=== PATIENT | male | born 1985 | race Caucasian/White ===

== ENCOUNTER 2018-07-30 16:41 | Emergency (ER) | payer SELFPAY ==
[2018-07-30 17:09] VITALS: BP 116/74; PULSE 102; RESP 16; TEMP 36.6; O2SAT 100
--- NOTE | 2018-07-30 17:37 | DI.CT_ITS ---
SYMPTOM/DIAGNOSIS: SYNCOPE, FELL NONCONTRAST HEAD CT: No priors. There is normal nayak white matter differentiation. No intracranial hemorrhage, infarct, midline shift or mass effect is identified. The ventricles are intact. The basilar cisterns are patent. There are fluid levels seen in the maxillary sinuses bilaterally. There is opacification of several ethmoid air cells bilaterally. There is mild mucosal thickening in the sphenoid sinuses and the frontal sinuses are clear. The mastoid air cells are well pneumatized. The calvarium is intact. IMPRESSION: 1. No acute intracranial process. 2. Fluid levels seen in the maxillary sinuses bilaterally. This can be seen with acute sinusitis as well as secondary to trauma. Follow up as clinically appropriate.
--- NOTE | 2018-07-30 17:39 | W.ED.GENAD ---
Discharge Plan Disposition Patient Disposition: HOME Condition: Fair Discharge Details Chief Complaint: Dizzy/Sync Clinical Impression: Syncope Primary Care Provider: None,None ED Provider: Shakira Traore Home Meds and New Rx's Prescriptions: No Action No Known Home Meds RF: 0 Discharge Instructions Instructions: Syncope (ED) Additional Instructions: Encourage hydration. You will need follow-up with primary care, I have asked her rn palliative care to help facilitate follow-up appointment. If you develop chest pain, shortness of breath, have recurrent syncopal episode or other new/worsening symptoms please seek care urgently once again Medical Decision Making <ZAHRA Horn - Last Filed: 07/31/18 00:39> Patient is a 33 year old male presenting today with c/c of syncope. 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 Reports that he awoke immediately. There is some mild discomfort in the posterior aspect of his head but no nausea or vomiting. No recent illness. Denies fevers or chills. No familial history of sudden cardiac . Denies any chest pain or shortness of breath. No recent travel. 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 Feels that his side effects associated with withdrawal are improving. Reports that now he is asleep is returning more to baseline but he does continue to have chills intermittently. On exam, patient is resting comfortably. No evidence of head trauma. Neuro exam is intact. Patient found to be in normal sinus rhythm. Will obtain EKG, baseline labs and head CT. Discussed plan with the patient is in agreement FINDINGS: Brain: Unremarkable. No hemorrhage. No significant white matter disease. No edema. No mass effect. Ventricles: Unremarkable. No ventriculomegaly. Bones/joints: Unremarkable. No acute fracture. Sinuses: Nonspecific fluid levels within the maxillary sinuses. These changes may be seen with acute sinusitis as well as trauma. Partial opacification of multiple ethmoid sinuses. Clear sphenoid and frontal sinuses. Mastoid air cells: Normal as visualized. No mastoid effusion. Soft tissues: Unremarkable. IMPRESSION: 1. No acute intracranial abnormality. 2. Fluid levels within the maxillary sinuses. These changes may be seen with acute sinusitis as well as secondary to trauma. EKG reviewed by Dr. Marroquin no acute abnormalities noted, please see his note Labs reviewed without any acute pathology noted. Spoke with the patient and his mother again, reviewed the CT findings, labs and EKG. Advised that his history is most consistent with a syncopal episode. Encouraged hydration, he received 1L fluids while here. Patient does not have primary care, I have asked her rn palliative care to help facilitate this. Patient was given strict return precautions. He lives locally with significant other and is able to return with new/worsening symptoms. All of his quesitons and concerns were addressed, he isin agreement with this plan. <Enrike Marroquin DO - Last Filed: 07/30/18 19:44> EKG 19: 37 Rate 93, intervals normal, sinus rhythm, no ST elevations or depressions, no T wave inversions, no epsilon wave, no delta wave, No significant abnormalities HPI <ZAHRA Horn - Last Filed: 07/31/18 00:39> General Mode of arrival: ambulatory. Date/Time Provider Initiated Documentation: 07/30/18 17:37. Limitations to Documentation: no limitations. Information obtained by: patient. History of Present Illness 33 year old M presents to the emergency department with the chief complaint of syncopal episode, Patient started experiencing this hour(s) and it has been now resolved. Patient notes syncope; denies chest pain, cough, diaphoresis, fever/chills, headaches, loss of appetite, nausea/vomiting, rash, seizure, shortness of breath and weakness. Patient did receive the following treatments prior to arrival, none Related Data Home Medications Medication Instructions Recorded Confirmed Unknown [No Known Home Meds] 07/30/18 07/30/18 Allergies Allergy/AdvReac Type Severity Reaction Status Date / Time No Known Allergies Allergy Unverified 07/30/18 17:14 General Stated Complaint: Dizzy/Sync IGGY: 3 Review of Systems <ZAHRA Horn Last Filed: 07/31/18 00:39> Constitutional Reports as per HPI, Denies chills, Denies fatigue, Denies fever(s), Denies frequent falls, Denies headache(s) and Denies poor appetite Eyes Reports as per HPI, Denies eye discharge and Denies irritation ENT Denies headache(s) Cardiovascular Reports as per HPI, Denies chest pain, Reports syncope, Denies rapid heart rate, Denies pedal edema, Denies radiating jaw, neck or arm pain, Denies palpitations, Denies dyspnea and Denies dyspnea on exertion Respiratory Reports as per HPI, Denies cough, Denies dyspnea and Denies dyspnea on exertion Gastrointestinal Reports as per HPI, Denies abdominal pain, Denies change in bowel habits, Denies nausea and Denies vomiting Musculoskeletal Reports as per HPI, Denies abnormal gait, Denies back pain, Denies numbness and Denies tingling Integumentary/Breasts Reports as per HPI and Denies rash Neurologic Denies abnormal speech, Denies abnormal gait, Denies behavioral changes, Reports syncope, Denies frequent falls, Denies headache(s), Denies focal weakness, Denies numbness, Denies convulsions, Denies seizure-like activity and Denies tingling Psychiatric Denies behavioral changes Endocrine Denies fatigue and Denies palpitations PFSH <ZAHRA Horn - Last Filed: 07/31/18 00:39> Social History Smoking/Tobacco Use Status: Current every day Exam <ZAHRA Horn - Last Filed: 07/31/18 00:39> Const General: cooperative, healthy appearing, comfortable, no acute distress, well developed and well groomed Nutritional Appearance: average body habitus and well nourished Orientation: alert and awake [facility] Head: normal to inspection, normocephalic and atraumatic Ears: hearing grossly normal bilaterally, external ears normal and TM's normal bilaterally General nose exam: external nose normal and nares normal Face and sinus: normal facial exam, sinuses nontender and face symmetric Mouth: oral mucosae normal, lip normal, tongue normal, oropharynx normal and moist mucous membranes Teeth and gingiva: dentition normal Throat: posterior oropharynx normal, tonsils normal and uvula midline Eyes General: appearance normal, both eyes and all related structures Neck Neck: normal visual inspection, full ROM, no lymphadenopathy and no meningeal signs Resp Effort & Inspection: normal respiratory effort, able to speak in complete sentences and no respiratory distress Auscultation: clear to auscultation bilaterally, no rales, no rhonchi and no wheezes Cardio Rate: regular rate Rhythm: regular rhythm Heart Sounds: S1 normal and S2 normal GI Inspection: normal to inspection Palpation: soft, no guarding and nontender Auscultation: normal bowel sounds Back/Spine/Pelvis Cervical Spine: normal cervical lordosis and cervical ROM normal Thoracic/Lumbar Spine: thoracic and lumbar spine normal to inspection and thoraco-lumbar ROM normal Skin General skin exam: no rashes or lesions noted Neuro General: alert, awake, oriented x3, gait normal, tone normal and moves all extremities Cranial Nerves: CN's II-XI intact bilaterally Cognition: normal cognition Speech: speech normal Gait: normal gait Motor: muscle tone normal throughout, strength 5/5 throughout, no pronator drift, no movement abnormalities noted and no fasciculations Sensory Exam: no sensory deficits noted DTR's: Rt Biceps: 2+, Lt Biceps: 2+, Rt Brachioradialis: 2+, Lt Brachioradialis: 2+, Rt Patellar: 2+, Lt Patellar: 2+, Rt Ankle: 2+ and Lt Ankle: 2+ Coordination: [id number] test normal, [id number]-ch-[id number] test normal, Romberg test normal and tandem gait normal Extrem General: normal to inspection, no pedal edema and no calf tenderness Psych Appearance: grossly normal and well kempt Mental Status: mental status grossly normal Speech and Movement: speech and movement normal Course <ZAHRA Horn - Last Filed: 07/31/18 00:39> Vital Signs Temperature 36.6 C 07/30/18 17:09 Pulse 102 H 07/30/18 17:09 Respiratory Rate 16 07/30/18 17:09 Blood Pressure 116/74 07/30/18 17:09 Pulse Oximetry 100 07/30/18 17:09 Temperature 36.6 C 07/30/18 17:09 Temperature Source Skin 07/30/18 17:09 Pulse 102 H 07/30/18 17:09 Respiratory Rate 16 07/30/18 17:09 Respiratory Effort Non-Labored 07/30/18 17:09 Blood Pressure 116/74 07/30/18 17:09 Blood Pressure Position Sitting 07/30/18 17:09 Pulse Oximetry 100 07/30/18 17:09 Oxygen Delivery Method Room Air 07/30/18 17:09 Oxygen Flow Rate 0 07/30/18 17:09 Pain Level 0 07/30/18 17:09
--- NOTE | 2018-07-30 17:56 | ED.GENADUL_ITS ---
Discharge Plan Disposition Patient Disposition: HOME Condition: Fair Discharge Details Chief Complaint: Dizzy/Sync Clinical Impression: Syncope Primary Care Provider: None,None ED Provider: Shakira Traore Home Meds and New Rx's Prescriptions: No Action No Known Home Meds RF: 0 Discharge Instructions Instructions: Syncope (ED) Additional Instructions: Encourage hydration. You will need follow-up with primary care, I have asked her lpn care manager to help facilitate follow-up appointment. If you develop chest pain, shortness of breath, have recurrent syncopal episode or other new/worsening symptoms please seek care urgently once again Medical Decision Making <ZAHRA Horn - Last Filed: 07/31/18 00:39> Patient is a 33 year old male presenting today with c/c of syncope. 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 Reports that he awoke immediately. There is some mild discomfort in the posterior aspect of his head but no nausea or vomiting. No recent illness. Denies fevers or chills. No familial history of sudden cardiac . Denies any chest pain or shortness of breath. No recent travel. 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 Feels that his side effects associated with withdrawal are improving. Reports that now he is asleep is returning more to baseline but he does continue to have chills intermittently. On exam, patient is resting comfortably. No evidence of head trauma. Neuro exam is intact. Patient found to be in normal sinus rhythm. Will obtain EKG, baseline labs and head CT. Discussed plan with the patient is in agreement FINDINGS: Brain: Unremarkable. No hemorrhage. No significant white matter disease. No edema. No mass effect. Ventricles: Unremarkable. No ventriculomegaly. Bones/joints: Unremarkable. No acute fracture. Sinuses: Nonspecific fluid levels within the maxillary sinuses. These changes may be seen with acute sinusitis as well as trauma. Partial opacification of multiple ethmoid sinuses. Clear sphenoid and frontal sinuses. Mastoid air cells: Normal as visualized. No mastoid effusion. Soft tissues: Unremarkable. IMPRESSION: 1. No acute intracranial abnormality. 2. Fluid levels within the maxillary sinuses. These changes may be seen with ac [place] sinusitis as well as secondary to trauma. EKG reviewed by Dr. Marroquin no acute abnormalities noted, please see his note Labs reviewed without any acute pathology noted. Spoke with the patient and his mother again, reviewed the CT findings, labs and EKG. Advised that his history is most consistent with a syncopal episode. Encouraged hydration, he received 1L fluids while here. Patient does not have primary care, I have asked her lpn care manager to help facilitate this. Patient was given strict return precautions. He lives locally with significant other and is able to return with new/worsening symptoms. All of his quesitons and concerns were addressed, he isin agreement with this plan. <Enrike Marroquin DO - Last Filed: 07/30/18 19:44> EKG 19: 37 Rate 93, intervals normal, sinus rhythm, no ST elevations or depressions, no T wave inversions, no epsilon wave, no delta wave, No significant abnormalities HPI <ZAHRA Horn - Last Filed: 07/31/18 00:39> General Mode of arrival: ambulatory . Date/Time Provider Initiated Documentation: 07/30/18 17:37 . Limitations to Documentation: no limitations . Information obtained by: patient . History of Present Illness 33 year old M presents to the emergency department with the chief complaint of syncopal episode, Patient started experiencing this hour(s) and it has been now resolved. Patient notes syncope; denies chest pain, cough, diaphoresis, fever/chills, headaches, loss of appetite, nausea/vomiting, rash, seizure, shortness of breath and weakness. Patient did receive the following treatments prior to arrival, none Related Data Home Medications Medication Instructions Recorded Confirmed Unknown [No Known Home Meds] 07/30/18 07/30/18 Allergies Allergy/AdvReac Type Severity Reaction Status Date / Time No Known Allergies Allergy Unverified 07/30/18 17:14 General Stated Complaint: Dizzy/Sync IGGY: 3 Review of Systems <ZAHRA Horn - Last Filed: 07/31/18 00:39> Constitutional Reports as per HPI, Denies chills, Denies fatigue, Denies fever(s), Denies frequent falls, Denies headache(s) and Denies poor appetite Eyes Reports as per HPI, Denies eye discharge and Denies irritation ENT Denies headache(s) Cardiovascular Reports as per HPI, Denies chest pain, Reports syncope, Denies rapid heart rate, Denies pedal edema, Denies radiating jaw, neck or arm pain, Denies palpitations, Denies dyspnea and Denies dyspnea on exertion Respiratory Reports as per HPI, Denies cough, Denies dyspnea and Denies dyspnea on exertion Gastrointestinal Reports as per HPI, Denies abdominal pain, Denies change in bowel habits, Denies nausea and Denies vomiting Musculoskeletal Reports as per HPI, Denies abnormal gait, Denies back pain, Denies numbness and Denies tingling Integumentary/Breasts Reports as per HPI and Denies rash Neurologic Denies abnormal speech, Denies abnormal gait, Denies behavioral changes, Reports syncope, Denies frequent falls, Denies headache(s), Denies focal weakness, Denies numbness, Denies convulsions, Denies seizure-like activity and Denies tingling Psychiatric Denies behavioral changes Endocrine Denies fatigue and Denies palpitations PFSH <ZAHRA Horn - Last Filed: 07/31/18 00:39> Social History Smoking/Tobacco Use Status: Current every day Exam <ZAHRA Horn - Last Filed: 07/31/18 00:39> Const General: cooperative, healthy appearing, comfortable, no acute distress, well developed and well groomed Nutritional Appearance: average body habitus and well nourished Orientation: alert and awake [facility] Head: normal to inspection, normocephalic and atraumatic Ears: hearing grossly normal bilaterally, external ears normal and TM's normal bilaterally General nose exam: external nose normal and nares normal Face and sinus: normal facial exam, sinuses nontender and face symmetric Mouth: oral mucosae normal, lip normal, tongue normal, oropharynx normal and moist mucous membranes Teeth and gingiva: dentition normal Throat: posterior oropharynx normal, tonsils normal and uvula midline Eyes General: appearance normal, both eyes and all related structures Neck Neck: normal visual inspection, full ROM, no lymphadenopathy and no meningeal signs Resp Effort & Inspection: normal respiratory effort, able to speak in complete sentences and no respiratory distress Auscultation: clear to auscultation bilaterally, no rales, no rhonchi and no wheezes Cardio Rate: regular rate Rhythm: regular rhythm Heart Sounds: S1 normal and S2 normal GI Inspection: normal to inspection Palpation: soft, no guarding and nontender Auscultation: normal bowel sounds Back/Spine/Pelvis Cervical Spine: normal cervical lordosis and cervical ROM normal Thoracic/Lumbar Spine: thoracic and lumbar spine normal to inspection and thoraco-lumbar ROM normal Skin General skin exam: no rashes or lesions noted Neuro General: alert, awake, oriented x3, gait normal, tone normal and moves all extremities Cranial Nerves: CN's II-XI intact bilaterally Cognition: normal cognition Speech: speech normal Gait: normal gait Motor: muscle tone normal throughout, strength 5/5 throughout, no pronator drift, no movement abnormalities noted and no fasciculations Sensory Exam: no sensory deficits noted DTR's: Rt Biceps: 2+, Lt Biceps: 2+, Rt Brachioradialis: 2+, Lt Brachioradialis: 2+, Rt Patellar: 2+, Lt Patellar: 2+, Rt Ankle: 2+ and Lt Ankle: 2+ Coordination: [id number] test normal, [id number] test normal, Romberg test normal and tandem gait normal Extrem General: normal to inspection, no pedal edema and no calf tenderness Psych Appearance: grossly normal and well kempt Mental Status: mental status grossly normal Speech and Movement: speech and movement normal Course <ZAHRA Horn - Last Filed: 07/31/18 00:39> Vital Signs Temperature 36.6 C 07/30/18 17:09 Pulse 102 H 07/30/18 17:09 Respiratory Rate 16 07/30/18 17:09 Blood Pressure 116/74 07/30/18 17:09 Pulse Oximetry 100 07/30/18 17:09 Temperature 36.6 C 07/30/18 17:09 Temperature Source Skin 07/30/18 17:09 Pulse 102 H 07/30/18 17:09 Respiratory Rate 16 07/30/18 17:09 Respiratory Effort Non-Labored 07/30/18 17:09 Blood Pressure 116/74 07/30/18 17:09 Blood Pressure Position Sitting 07/30/18 17:09 Pulse Oximetry 100 07/30/18 17:09 Oxygen Delivery Method Room Air 07/30/18 17:09 Oxygen Flow Rate 0 07/30/18 17:09 Pain Level 0 07/30/18 17:09
[2018-07-30 18:25] VITALS: RESP 16
[2018-07-30] MEDS: Normal Saline 1,000 ML 1000 ML IV (18:25)
[2018-07-30 18:28] LABS: Abs Immature Grans 0.06 k/cumm (0.0-0.09); Absolute Basophil Count 0.03 k/cumm (0.0-0.2); Absolute Eosinophil Count 0.06 k/cumm (0.0-0.7); Absolute Lymphocyte Count 1.14 k/cumm (1.2-3.4); Absolute Neutrophil Count 10.66 k/cumm (1.2-6.7); Basophils % 0.2; Eosinophils % 0.5; HCT 43.2 % (40.0-50.0); HGB 14.9 g/dL (13.5-17.5); Immature Grans % 0.5; Lymphocytes % 8.9; Mean Corp. HGB Concentration 34.5 g/dL (32.0-36.0); Mean Corpuscular Hemoglobin 30.2 pg (27.0-33.0); Mean Corpuscular Volume 87.4 fL (80-95); Mean Platelet Volume 9.2 fL (8.0-11.0); Neutrophils % 82.9; Platelet Count 352 x1000/uL (130-400); RBC 4.94 m/cumm (4.50-6.00); RBC Distribution Width 12.6 % (11.8-14.1); White Blood Cell Count 12.86 k/cumm (4.4-10.8)
--- NOTE | 2018-07-30 18:45 | DI.VRAD_ITS ---
EXAM: CT Head Without Contrast EXAM DATE/TIME: 07/30/2018 5:39 PM CLINICAL HISTORY: 33 years old, male; Injury or trauma; Fall; Initial encounter; Blunt trauma (contusions or hematomas); With loss of consciousness; Not specified; Patient HX: Syncope and fall TECHNIQUE: Axial computed tomography images of the head/brain without contrast. Coronal and sagittal reformatted images were created and reviewed. COMPARISON: No relevant prior studies available. FINDINGS: Brain: Unremarkable. No hemorrhage. No significant white matter disease. No edema. No mass effect. Ventricles: Unremarkable. No ventriculomegaly. Bones/joints: Unremarkable. No acute fracture. Sinuses: Nonspecific fluid levels within the maxillary sinuses. These changes may be seen with acute sinusitis as well as trauma. Partial opacification of multiple ethmoid sinuses. Clear sphenoid and frontal sinuses. Mastoid air cells: Normal as visualized. No mastoid effusion. Soft tissues: Unremarkable. IMPRESSION: 1. No acute intracranial abnormality. 2. Fluid levels within the maxillary sinuses. These changes may be seen with acute sinusitis as well as secondary to trauma. Dictated and Authenticated by: Rory Luz MD. Ordering:CHRISTIANO Rosenberg MD
[2018-07-30 18:50] LABS: Magnesium 2.3 mg/dL (1.8-2.4); TSH 1.04 uIU/mL (0.358-3.74)
[2018-07-30 18:52] LABS: ALT 29 U/L (12-78); AST 11 U/L (15-37); Albumin 3.6 g/dL (3.4-5.0); Alkaline Phosphatase 82 U/L (46-116); Anion Gap 8.8 mmol/L (3-11); BUN 14 mg/dL (7-18); Bilirubin, Total 0.3 mg/dL (0.2-1.0); CO2 29.2 mmol/L (21.0-32.0); CREATININE 1.01 mg/dL (0.70-1.30); Calcium 9.3 mg/dL (8.5-10.1); Chloride 105 mmol/L (98-107); Glucose 90 mg/dL (70-100); Potassium 3.7 mmol/L (3.5-5.1); Sodium 143 mmol/L (136-145); Total Protein 7.4 g/dL (6.4-8.2)
[2018-07-30 18:53] LABS: PTT Activated 22.9 sec (21.0-31.4); Prothrombin Time 9.7 sec (9.3-11.0)
[2018-07-30 18:58] LABS: Troponin I < 0.02 ng/mL (0.00-0.06)
[2018-07-30 20:18] VITALS: BP 116/74; PULSE 92; RESP 16; TEMP 36.6; O2SAT 100
--- NOTE | 2018-07-31 08:12 | PDOC.ERCMPRO ---
Care Management Progress Note 07/31-Shakira SWEENEY requested assistance with a PCP ([facility] does not have a PCP, Dr. Macias airline operations agent) in 1-2 weeks for syncope and to establish care. Referral faxed to [facility] this am.
--- NOTE | 2018-07-31 08:13 | CMPROGNOTE_ITS ---
Care Management Progress Note 07/31-Shakira SWEENEY requested assistance with a PCP ([facility] does not have a PCP, Dr. Macias video control operator) in 1-2 weeks for syncope and to establish care. Referral faxed to [facility] this am.
== END 2018-07-30 20:16 | disposition home or self-care (01) ==
PROVIDERS: Emergency Provider Physician Assistant
DX: R55 Syncope and collapse (principal); S09.90XA Unspecified injury of head, initial encounter; W18.30XA Fall on same level, unspecified, initial encounter; Y99.0 Civilian activity done for income or pay
CPT/HCPCS: 36415; 80053; 96360; 96361; 99284; 70450; 83735; 84443; 84484; 85025; 85610; 85730; 99283